=== PATIENT | female | born 1985 | race Hispanic/Latino ===

== ENCOUNTER 2018-01-20 16:37 | Emergency (ER) | payer MEDICAID ==
[~2018-01-20] VITALS: Ht 170.2 cm; Wt 120.0 kg
[2018-01-20] MEDS ORDERED: METFORMIN500 MG PO (16:50)
[2018-01-20] MEDS ORDERED: LIPITOR10 M1 PO (16:51)
[2018-01-20] MEDS ORDERED: LATUDA20 MG PO (16:52)
[2018-01-20] MEDS ORDERED: SERTRALINE25 MG PO (16:52)
[2018-01-20] MEDS ORDERED: TRAZODONE50 MG PO (16:52)
[2018-01-20] MEDS ORDERED: TESSALON PERLE100 MG PO (17:25)
[2018-01-20] MEDS ORDERED: PROVENTIL HFA IN (17:25)
[2018-01-20] MEDS ORDERED: NOVOLOG100 UNIT/M IJ (17:25)
[2018-01-20 18:04] VITALS: BP 143/78
== END 2018-01-20 18:13 | disposition home or self-care (01) ==
LOC: ED 16:37
DX: J40 Bronchitis, not specified as acute or chronic (principal); F17.210 Nicotine dependence, cigarettes, uncomplicated; R05 Cough; R07.89 Other chest pain; E11.9 Type 2 diabetes mellitus without complications; Z79.4 Long term (current) use of insulin

== ENCOUNTER 2018-01-28 20:12 | Emergency (ER) | payer MEDICAID ==
[~2018-01-28] VITALS: Ht 170.2 cm; Wt 118.0 kg
[~2018-01-28 20:12] MED LIST: LATUDA20 MG PO; LIPITOR10 M1 PO; METFORMIN500 MG PO; NOVOLOG100 UNIT/M IJ; PROVENTIL HFA IN; SERTRALINE25 MG PO; TESSALON PERLE100 MG PO; TRAZODONE50 MG PO
[2018-01-28 21:29] LABS: HEMATOCRIT 41.4 % (37.0-47.0); HEMOGLOBIN 13.5 g/dl (12.0-16.0); IMMATURE GRANULOCYTES 0.3 % (0.0-5.0); MEAN CORPUSCULAR HGB 25.4 pG CALC (26.0-32.0); MEAN CORPUSCULAR HGB CONC 32.6 g/L CALC (32.0-36.0); NEUT# 7.58 thou/uL (2.00-7.15); RED BLOOD COUNT 5.31 mill/uL (4.20-5.60); RED CELL DISTRI WIDTH 13.8 % (11.5-15.5)
[2018-01-28 21:44] LABS: ALKALINE PHOSPHATASE 67 u/l (38-126); ANION GAP 14 (6-22 (CALC)); BILIRUBIN, TOTAL 0.3 mg/dL (0.0-1.4); BUN 12 mg/dL (7-17); BUN/CREATININE RATIO 23 (12-20 (CALC)); CARBON DIOXIDE 25 mmol/l (22-30); CHLORIDE 100 mmol/l (95-108); CREATININE 0.5 mg/dL (0.5-1.0); GFR > 60 ML/MIN (>=60 (CALC)); GFR FOR AFR.AMER. > 60 ML/MIN (>=60 (CALC)); POTASSIUM 4.9 mmol/l (3.5-5.1); SGOT/AST 17 u/l (14-36); SODIUM 135 mmol/l (137-146)
[2018-01-28 23:00] VITALS: BP 118/64
== END 2018-01-28 23:11 | disposition home or self-care (01) ==
LOC: ED 20:12
PROVIDERS: Emergency Medicine
DX: S22.31XA Fracture of one rib, right side, initial encounter for closed fracture (principal); E11.65 Type 2 diabetes mellitus with hyperglycemia; F32.9 Major depressive disorder, single episode, unspecified; F41.9 Anxiety disorder, unspecified; F43.10 Post-traumatic stress disorder, unspecified; F17.210 Nicotine dependence, cigarettes, uncomplicated; X58.XXXA Exposure to other specified factors, initial encounter; Z79.4 Long term (current) use of insulin; R07.81 Pleurodynia
CPT/HCPCS: Q9967

== ENCOUNTER 2018-01-31 23:31 | Emergency (ER) | payer MEDICAID ==
[~2018-01-31] VITALS: Ht 170.2 cm; Wt 118.0 kg
[2018-02-01] MEDS ORDERED: NAPROSYN500 MG PO (00:22)
[2018-02-01 00:31] VITALS: BP 144/81
== END 2018-02-01 00:43 | disposition home or self-care (01) ==
LOC: ED 23:31
DX: S93.505A Unspecified sprain of left lesser toe(s), initial encounter (principal); E11.9 Type 2 diabetes mellitus without complications; F41.9 Anxiety disorder, unspecified; F32.9 Major depressive disorder, single episode, unspecified; F43.10 Post-traumatic stress disorder, unspecified; F17.200 Nicotine dependence, unspecified, uncomplicated; X58.XXXA Exposure to other specified factors, initial encounter

== ENCOUNTER 2018-11-25 21:37 | Emergency (ER) | payer OTHER ==
[~2018-11-25] VITALS: Ht 170.2 cm; Wt 90.0 kg
[~2018-11-25 21:37] MED LIST changes: +NAPROSYN500 MG PO
[2018-11-26] MEDS ORDERED: LORTAB 1010 MG PO (00:34)
[2018-11-26 00:50] VITALS: BP 111/68
== END 2018-11-26 00:50 | disposition home or self-care (01) ==
LOC: ED 21:37
DX: S20.212A Contusion of left front wall of thorax, initial encounter (principal); S53.402A Unspecified sprain of left elbow, initial encounter; S83.92XA Sprain of unspecified site of left knee, initial encounter; E11.9 Type 2 diabetes mellitus without complications; F17.200 Nicotine dependence, unspecified, uncomplicated; V18.0XXA Pedal cycle driver injured in noncollision transport accident in nontraffic accident, initial encounter; Y93.55 Activity, bike riding; Z79.84 Long term (current) use of oral hypoglycemic drugs

== ENCOUNTER 2020-11-10 15:50 | Emergency (ER) | payer OTHER ==
[~2020-11-10 15:50] MED LIST changes: +LORTAB 1010 MG PO
== END 2020-11-10 16:57 | disposition left against medical advice (07) | DRG 951 ==
LOC: ED 15:50 → LWOBS 16:57
DX: Z53.21 Procedure and treatment not carried out due to patient leaving prior to being seen by health care provider (principal)

== ENCOUNTER 2023-11-13 11:40 | Emergency (ER) | payer OTHER ==
[~2023-11-13] VITALS: Ht 170.2 cm; Wt 81.6 kg
== END 2023-11-13 12:15 | disposition left against medical advice (07) | DRG 951 ==
LOC: ED 11:40 → LWOBS 12:13
DX: Z53.21 Procedure and treatment not carried out due to patient leaving prior to being seen by health care provider (principal)

== ENCOUNTER 2024-04-15 16:56 | Emergency (ER) | payer OTHER ==
[~2024-04-15] VITALS: Ht 170.2 cm; Wt 72.5 kg
[2024-04-15] MEDS ORDERED: OSELTAMIVIR PHOSPHATE 75 MG/TAB CAP PO ONE (18:15)
[2024-04-15] MEDS ORDERED: KETOROLAC TROMETHAMINE 30 MG/ML SDV IM ONE (18:15)
[2024-04-15] MEDS ORDERED: BENZONATATE200 MG PO (18:21)
[2024-04-15] MEDS ORDERED: PROAIR HFA IN (18:21)
[2024-04-15] MEDS ORDERED: TAM75CAP PO (18:21)
== END 2024-04-15 18:38 | disposition home or self-care (01) | DRG 195 ==
LOC: ED 16:56
DX: J10.1 Influenza due to other identified influenza virus with other respiratory manifestations (principal); E11.9 Type 2 diabetes mellitus without complications; F41.9 Anxiety disorder, unspecified; F32.A Depression, unspecified; F17.200 Nicotine dependence, unspecified, uncomplicated; Z20.822 Contact with and (suspected) exposure to COVID-19